=== PATIENT | male | born 1960 | race Caucasian/White ===

== ENCOUNTER → 2021-01-05 | Outpatient (CLI) | payer OTHER ==
--- NOTE | 2021-01-05 17:21 | KCIC ---
EXAMINATION: MRI LEFT KNEE WITHOUT IV CONTRAST CLINICAL HISTORY: Left knee pain 3 wks, no known injury, knee catching TECHNIQUE: Multiplanar multisequential images obtained through the knee without intravenous contrast. COMPARISON: None FINDINGS: MENISCI: Medial Meniscus: Intact Lateral Meniscus: Mild fraying of the free edge in the body LIGAMENTS: ACL: Intact PCL: Intact MCL: Intact LCL Complex: Intact CARTILAGE: Medial Femoral Condyle: Moderate sized area of high grade (greater than 50% thickness) and full-thick ness cartilage loss and or fissuring in the weightbearing portion of the condyle Medial Tibial Plateau: Normal Lateral Femoral Condyle: Normal Lateral Tibial Plateau: Normal Patella: Single high grade (greater than 50% thickness) cartilage fissure in the medial facet Trochlea: Normal TENDONS: Distal quadriceps and patellar tendons intact. Popliteus tendon intact. BONES AND MARROW: No evidence of acute fracture or suspicious marrow replacing process. Mild lateral subluxation and tilt of the patella. Medial patellofemoral ligament intact. MUSCLES: Muscle bulk and signal intensity within normal limits. JOINT FLUID AND SYNOVIUM: Large joint effusion. Mild synovitis. No Mittal's cyst. IMPRESSION: Mild fraying free edge of the lateral meniscus. No discrete meniscus tear or acute ligamentous injury . Mild full-thickness chondral wear in the medial femoral condyle. Mild lateral subluxation and tilt of the patella. Electronically signed by: Maurizio Blakely DO (01/05/2021 5:18 PM) [id number]
== END ==
LOC: KCIC MRI 15:12
PROVIDERS: ATTEND Family Medicine
DX: S83.092A Other subluxation of left patella, initial encounter (principal); X58.XXXA Exposure to other specified factors, initial encounter; Y93.89 Activity, other specified; Y92.89 Other specified places as the place of occurrence of the external cause; Y99.8 Other external cause status
CPT/HCPCS: 73721